=== PATIENT | male | born 1980 | race Two or more races ===

== ENCOUNTER 2023-04-23 07:25 | Emergency (ER) | payer OTHER ==
[~2023-04-23] VITALS: Ht 180.3 cm; Wt 108.3 kg
[2023-04-23 08:03] VITALS: BP 164/103; PULSE 82; RESP 16; TEMP 98; O2SAT 96
[2023-04-23 09:24] LABS: Rapid Strep A Screen-Throat Negative
[2023-04-23] MEDS ORDERED: LIDO2SOL26 MT (09:38)
[2023-04-23] MEDS ORDERED: METH4PAK PO (09:38)
[2023-04-23] MEDS ORDERED: IBUP1TAB5 PO (09:38)
== END 2023-04-23 09:39 | disposition home or self-care (01) ==
LOC: ER 07:25
DX: R60.1 Generalized edema (principal); F17.210 Nicotine dependence, cigarettes, uncomplicated
CPT/HCPCS: 87070; 87880